=== PATIENT | male | born 1995 | race Two or more races ===

== ENCOUNTER → 2025-05-04 | Outpatient (REF) | payer OTHER, BC ==
[2025-05-04 15:37] LABS: ALT/SGPT 19 U/L (7.0-40); AST/SGOT 19 U/L (<34); CALCIUM LEVEL 9.5 MG/DL (8.5-10.1); CARBON DIOXIDE LEVEL 34 MMOL/L (20-31); CHLORIDE LEVEL 104 MMOL/L (98-107); CREATININE FOR GFR 0.92 MG/DL (0.70-1.30); GLOMERULAR FILTRATION RATE > 90.0 (>60); POTASSIUM SERUM 4.7 MMOL/L (3.5-5.1); SODIUM LEVEL 144 MMOL/L (136-145)
[2025-05-04 15:39] LABS: FREE T4 1.07 NG/DL (0.89-1.76)
[2025-05-04 15:40] LABS: TESTOSTERONE 172 NG/DL (241-827)
[2025-05-04 15:41] LABS: BASO # 0.0 10^3/uL (0.0-0.2); BASO % 0.6 % (0.0-1.0); EOS # 0.2 10^3/uL (0.0-0.5); EOS % 2.9 % (0.0-3.0); LYMPH # 1.6 10^3/uL (1.5-5.0); LYMPH % 31.2 % (24.0-44.0); MONO # 0.3 10^3/uL (0.0-0.8); MONO % 6.5 % (2.0-8.0); NEUTROPHILS # 3.1 10^3/uL (1.5-8.5); NEUTROPHILS % 58.6 % (36.0-66.0); PLATELET COUNT, AUTOMATED 202 10^3/uL (150-450)
[2025-05-04 16:08] LABS: ESTIMATED AVERAGE GLUCOSE 103.0 MG/DL (60-110)
== END ==
LOC: M LAB REF 14:25
PROVIDERS: ATTEND Family Medicine Addiction Medicine
DX: R53.83 Other fatigue (principal)

== ENCOUNTER → 2025-05-25 | Outpatient (CLI) | payer BC ==
[2025-05-25 12:56] LABS: FREE T4 1.28 NG/DL (0.89-1.76)
[2025-05-25 12:58] LABS: TESTOSTERONE 405.0 NG/DL (241-827)
== END ==
LOC: M WUC 08:36
PROVIDERS: ATTEND Family Medicine Addiction Medicine
DX: R63.4 Abnormal weight loss (principal); R53.83 Other fatigue; R79.89 Other specified abnormal findings of blood chemistry